=== PATIENT | female | born 1975 | race Caucasian/White ===

== ENCOUNTER 2020-03-18 15:02 | Emergency (ER) | payer OTHER ==
[2020-03-18] MEDS ORDERED: KETOROLAC TROMETHAMINE INJ 30 MG/ML VIAL IM ONE (15:38)
--- NOTE | 2020-03-18 16:36 | RAD ---
EXAM DESCRIPTION: Chest,1 View CLINICAL HISTORY:45 years Female, right lower chest upper abd pain Comparison: None FINDINGS: No focal lung consolidation. No pleural effusion. No pneumothorax. Cardiac and mediastinal silhouette is unremarkable. No acute osseous abnormality. Soft tissues are unremarkable. IMPRESSION: No acute findings. No focal lung consolidation. Electronically signed by: Conner Escobar MD 03/18/2020 4:34 PM CDT
[2020-03-18] MEDS ORDERED: TAMSULOSIN 0.4 MG CAP PO ONE (16:58)
[2020-03-18] MEDS ORDERED: HYDROcodone 7.5MG/APAP 325MG 1 EA TAB PO ONE (16:58)
[2020-03-18] MEDS ORDERED: CIPROFLOXACIN 500 MG TAB PO ONE (16:59)
--- NOTE | 2020-03-18 17:41 | CT ---
EXAM DESCRIPTION: Abdoment/Pelvis w/o Contrast CLINICAL HISTORY: rt abd flank pain, mild hematuria COMPARISON: None Available TECHNIQUE: Contiguous axial images of the abdomen and pelvis were obtained followed by reconstruction images. This exam was performed according to our departmental dose-optimization program, which includes automated exposure control, adjustment of the mA and/or kV according to patient size and/or use of iterative reconstruction technique. FINDINGS: Patient is status post cholecystectomy. There is right-sided hydronephrosis due to a 4 mm stone within the proximal ureter. There is an additional nonobstructive 1.3 cm stone within the right kidney. There are nonobstructive stones within the left kidney. Calcifications within the pelvis compatible with phleboliths. Patient is status post cholecystectomy. The liver, spleen, pancreas and kidneys are within normal limits. Adrenal glands are within normal limits. Aorta is of normal caliber and tapering. There is no free fluid in the abdomen or pelvis. There is no bowel obstruction. There is no stranding of the mesenteric fat to suggest an inflammatory response. The appendix is within normal limits. There is no pericecal inflammation. IMPRESSION: Right-sided hydronephrosis due to a 4 mm stone within the proximal ureter. Bilateral nephrolithiasis. Electronically signed by: Niraj Solomon MD 03/18/2020 5:40 PM CDT
--- NOTE | 2020-03-18 17:50 | ED.PDOC ---
History of Present Illness - General Chief Complaint: General Stated Complaint: RUQ abd pain radiating to the back, N/V Time Seen by Provider: 03/18/20 15:38 Source: patient Exam Limitations: no limitations - History of Present Illness Initial Comments: The patient is a 45-year-old female presented emergency room secondary to right flank and abdominal pain cramping in nature that started about 18 hours ago. No dysuria. No urinary symptoms. No history of any significant kidney stones. She has been doing some painting recently that may have caused some muscle strain. No bruising. No palpable deformity. No respiratory symptoms. Timing/Duration: 24 hours Severity: moderate Improving Factors: nothing Worsening Factors: movement Associated Symptoms: denies symptoms Allergies/Adverse Reactions: Allergies Azithromycin [From Zithromax] Allergy (Verified 03/18/20 15:44) Home Medications: Ambulatory Orders Ciprofloxacin [Cipro] 500 mg PO BID #10 tab 03/18/20 Tamsulosin HCl [Flomax] 0.4 mg PO DAILY #7 cap 03/18/20 Review of Systems - Review of Systems Constitutional: States: no symptoms reported EENTM: States: no symptoms reported Respiratory: States: no symptoms reported Cardiology: States: no symptoms reported Gastrointestinal/Abdominal: States: abdominal pain Genitourinary: States: no symptoms reported Musculoskeletal: States: back pain Skin: States: no symptoms reported Neurological: States: no symptoms reported Endocrine: States: no symptoms reported All other Systems: No Change from Baseline Past Medical History (General) - Patient Medical History Hx Stroke: No Hx of COPD: No Hx Cardiac Disorders: No Hx Congestive Heart Failure: No Hx Hypertension: Yes Hx Diabetes: Yes Hx Gastroesophageal Reflux: Yes Hx Cancer: No Surgical History: cholecystectomy, tonsillectomy, Hysterectomy - Vaccination History Hx Influenza Vaccination: No Hx Pneumococcal Vaccination: No - Social History Hx Tobacco Use: No Hx Alcohol Use: No Hx Substance Use: No Hx Substance Use Treatment: No Hx Depression: No - Female History Patient is a Female of Child Bearing Age (10 -59 yrs old): Yes Patient : No - Hyst Family Medical History - Family History Father Hx Family Stroke: Yes Hx Family Diabetes: Yes Physical Exam - Physical Exam General Appearance: Alert, No apparent distress Eye Exam: bilateral normal Ears, Nose, Throat: hearing grossly normal, normal pharynx Neck: full range of motion, supple Respiratory: lungs clear, normal breath sounds, no respiratory distress, no accessory muscle use Cardiovascular/Chest: normal peripheral pulses, regular rate, rhythm, no edema Peripheral Pulses: radial,right: 2+, radial,left: 2+ Gastrointestinal/Abdominal: non tender, soft Rectal Exam: deferred Back Exam: CVA tenderness (R) Extremity: non-tender, normal inspection, no pedal edema, normal capillary refill 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 She appears to have a 4 mm stone in the right proximal ureter. No evidence of infection or kidney failure. The patient needs to drink a fairly large amount of fluids for the next week. She does need to do remain mobile. Additionally she can take Motrin or Aleve to hel p reduce inflammation and help with passage. She will also be written for Flomax and ciprofloxacin for the next week. If she is still having symptoms after 5 to 7 days then she needs to get an appointment with a urologist for consultation for possible stone removal. ER warnings given. gudelia roblero [id number] - Results/Orders Results/Orders: CT scan of abdomen pelvis shows a 4 mm obstructing stone in the proximal ureter. There is also a 1.3 cm stone in the kidney itself. Chest x-ray shows no acute pathology. COVID test is negative. Laboratory Tests 03/18/20 03/18/20 03/18/20 15:53 15:53 15:53 WBC 8.8 RBC 5.03 Hgb 13.1 Hct 39.8 MCV 79.2 L MCH 26.0 L MCHC 32.9 L RDW 14.1 Plt Count 212 MPV 8.7 Absolute Neuts (auto) 6.30 Absolute Lymphs (auto) 1.70 Absolute Monos (auto) 0.60 Absolute Eos (auto) 0.20 Absolute Basos (auto) 0.10 Neutrophils % 71.2 Lymphocytes % 19.1 L Monocytes % 6.8 Eosinophils % 2.2 Basophils % 0.7 Sodium 137 Potassium 4.3 Chloride 99 L Carbon Dioxide 27 Anion Gap 15.3 BUN 20 H Creatinine 0.55 L BUN/Creatinine Ratio 36.4 H Random Glucose 180 H Serum Osmolality 281.0 Calcium 8.9 Total Bilirubin 0.4 AST 17 ALT 20 Alkaline Phosphatase 48 Serum Total Protein 7.0 Albumin 3.7 Globulin 3.3 Albumin/Globulin Ratio 1.1 Amylase 26 L Lipase 23 Serum HCG, Qual Negative Urine Color Urine Appearance Urine pH Ur Specific [place] Urine Protein Urine Glucose (UA) Urine Ketones Urine Blood Urine Nitrite Urine Bilirubin Urine Urobilinogen Ur Leukocyte Esterase Urine RBC Urine WBC Ur Epithelial Cells Urine Bacteria 03/18/20 16:22 WBC RBC Hgb Hct MCV MCH MCHC RDW Plt Count MPV Absolute Neuts (auto) Absolute Lymphs (auto) Absolute Monos (auto) Absolute Eos (auto) Absolute Basos (auto) Neutrophils % Lymphocytes % Monocytes % Eosinophils % Basophils % Sodium Potassium Chloride Carbon Dioxide Anion Gap BUN Creatinine BUN/Creatinine Ratio Random Glucose Serum Osmolality Calcium Total Bilirubin AST ALT Alkaline Phosphatase Serum Total Protein Albumin Globulin Albumin/Globulin Ratio Amylase Lipase Serum HCG, Qual Urine Color Yellow Urine Appearance Sl cloudy Urine pH 6.0 Ur Specific [place] 1.025 Urine Protein Trace Urine Glucose (UA) Negative Urine Ketones Negative Urine Blood Large H Urine Nitrite Negative Urine Bilirubin Negative Urine Urobilinogen 0.2 Ur Leukocyte Esterase Negative Urine RBC 20-30 H Urine WBC 0 Ur Epithelial Cells 0-1 Urine Bacteria 0 Departure - Departure Clinical Impression: Calcium ureterolithiasis Disposition: Discharge to Home or Self Care Condition: Fair Departure Forms: ED Discharge - Pt. Copy, Patient Portal Self Enrollment Instructions: Kidney Stones (DC) Diet: regular diet Activity: increase activity as tolerated Referrals: RM NOGUERA [Primary Care Provider] - 1-2 Weeks Prescriptions: Ciprofloxacin [Cipro] 500 mg PO BID #10 tab Tamsulosin HCl [Flomax] 0.4 mg PO DAILY #7 cap Home Medications: Ambulatory Orders Ciprofloxacin [Cipro] 500 mg PO BID #10 tab 03/18/20 Tamsulosin HCl [Flomax] 0.4 mg PO DAILY #7 cap 03/18/20 Additional Instructions: The patient is a 45-year-old female presented emergency room secondary to right-sided flank and abdominal pain. She appears to have a 4 mm stone in the right proximal ureter. No evidence of infection or kidney failure. The patient needs to drink a fairly large amount of fluids for the next week. She does need to do remain mobile. Additionally she can take Motrin or Aleve to help reduce inflammation and help with passage. She will also be written for Flomax and ciprofloxacin for the next week. If she is still having symptoms after 5 to 7 days then she needs to get an appointment with a urologist for consultation for possible stone removal. ER warnings given.
[2020-03-18 18:01] VITALS: BP 130/80; TEMP 97.6; O2SAT 97
== END 2020-03-18 17:59 | disposition home or self-care (01) ==
LOC: ER 15:02
DX: N20.2 Calculus of kidney with calculus of ureter (principal); I10 Essential (primary) hypertension; E11.9 Type 2 diabetes mellitus without complications; K21.9 Gastro-esophageal reflux disease without esophagitis; Z20.828 Contact with and (suspected) exposure to other viral communicable diseases
CPT/HCPCS: 36415; 71045; 74176; 80053; 81001; 82150; 83690; 84703; 85025; 87635; J1885

== ENCOUNTER 2020-04-07 18:40 | Emergency (ER) | payer OTHER ==
[2020-04-07] MEDS ORDERED: MORPHINE SULFATE INJ 10 MG/ML VIAL IV ONE (19:11)
[2020-04-07] MEDS ORDERED: SODIUM CHLORIDE 0.9% 1000ML 1,000 ML IVS ONE (19:11)
[2020-04-07] MEDS ORDERED: ONDANSETRON INJ 4 MG/2 ML VIAL IV ONE (19:11)
[2020-04-07] MEDS ORDERED: ACETAMINOPHEN IV 1000MG 1,000 MG in PREMIX BOTTLE 1 BOTTLE IVPB ONE (19:22)
--- NOTE | 2020-04-07 19:51 | CT ---
EXAM: Abdoment/Pelvis w/o Contrast CLINICAL INDICATION: Abdominal pain. COMPARISON: 03/18/2020 TECHNIQUE: The CT scan was done using contiguous axial 2.5 mm noncontrast sections through the abdomen and pelvis. This exam was performed according to our departmental dose-optimization program, which includes automated exposure control, adjustment of the mA and/or kV according to patient size and/or use of iterative reconstruction technique. FINDINGS: The visualized portions of the lung bases are clear. The liver, spleen, adrenal glands, pancreas, and left kidney are unremarkable. There is an obstructing stone lodged at the right ureteropelvic junction measuring 1.4 x 0.9 cm, with moderate right hydronephrosis. Another, smaller stone is seen in the right proximal ureter measuring 4.6 x 2.8 mm. The aorta is normal in caliber. There are no dilated loops of small bowel. The appendix is normal. The uterus is surgically absent. There is no free air, free fluid, or abscess. IMPRESSION: 1. 2 stones in the right proximal ureter with moderate right-sided hydronephrosis. 2. 2 mm nonobstructing stone in the right lower renal pole. Electronically signed by: Jonathan Bennett MD 04/07/2020 7:50 PM LINER HELPER
--- NOTE | 2020-04-07 19:56 | ED.PDOC ---
History of Present Illness - General Chief Complaint: Problem Time Seen by Provider: 04/07/20 18:41 Source: patient, RN notes reviewed, Vital Signs reviewed, old records - History of Present Illness Initial Comments: 45 yo F with a PMH of HTN and stones comes in with right flank pain. Was here one week ago and dx with 3 mm stone. States she also has a large stone, but was xtill in renal pelvis. woke up this morning with right flank pain. Has not seen urology. Allergies/Adverse Reactions: Allergies Azithromycin [From Zithromax] Allergy (Verified 03/18/20 15:44) Home Medications: Ambulatory Orders Ondansetron HCl [Zofran] 4 mg PO TID PRN #15 tab 04/07/20 Sulfamethoxazole-Trimethoprim [Bactrim Ds 800-160 mg] 1 tab PO BID #20 tab 04/07/20 Tamsulosin HCl [Flomax] 0.4 mg PO DAILY #30 cap 04/07/20 Review of Systems - Review of Systems Constitutional: Denies: chills, fever EENTM: Denies: blurred vision, ear discharge, throat pain, mouth pain Respiratory: Denies: cough, short of breath, wheezing Cardiology: Denies: chest pain, palpitations Gastrointestinal/Abdominal: States: abdominal pain, nausea. Denies: diarrhea, vomiting Genitourinary: States: hematuria. Denies: dysuria, frequency Musculoskeletal: Denies: joint pain, joint swelling, muscle pain Skin: Denies: rash Neurological: Denies: headache, numbness, paresthesia, tingling, tremors, weakness Endocrine: Denies: unexplained weight gain, unexplained weight loss Hematologic/Lymphatic: Denies: easy bleeding, easy bruising Past Medical History (General) - Patient Medical History Hx Stroke: No Hx of COPD: No Hx Cardiac Disorders: No Hx Congestive Heart Failure: No Hx Hypertension: Yes Hx Diabetes: Yes Hx Gastroesophageal Reflux: Yes Hx Cancer: No - Vaccination History Hx Influenza Vaccination: No Hx Pneumococcal Vaccination: No - Social History Hx Tobacco Use: No Hx Alcohol Use: No Hx Substance Use: No Hx Substance Use Treatment: No Hx Depression: No - Female History Patient : No - Hyst Family Medical History - Family History Father Hx Family Stroke: Yes Hx Family Diabetes: Yes Physical Exam - Physical Exam General Appearance: Alert, Comfortable, No apparent distress, Well Developed, Well Groomed, Well Hydrated, Well Nourished Eye Exam: bilateral normal Ears, Nose, Throat: hearing grossly normal, normal ENT inspection, normal pharynx Neck: non-tender, full range of motion, supple, normal inspection Respiratory: chest non-tender, lungs clear, normal breath sounds, no respiratory distress, no accessory muscle use Cardiovascular/Chest: normal peripheral pulses, regular rate, rhythm, no edema, no gallop, no JVD, no murmur Peripheral Pulses: radial,right: 2+, radial,left: 2+ Gastrointestinal/Abdominal: normal bowel sounds, non tender, soft, no organomegaly, no pulsatile mass Rectal Exam: deferred Back Exam: normal inspection, no vertebral tenderness, CVA tenderness (R) Extremity: normal range of motion, non-tender, normal inspection, no pedal edema, no calf tenderness, normal capillary refill 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 due to taking 9 motrin today will avoid toradol. Will give IV tylenol. Refuses norco as well. The data reviewed when caring for this patient included: nurse notes, prior records, etc. The history and assessments from nurses notes were reviewed and considered, and the patient's home medication list was also reviewed and considered. My assessment and the results of testing completed here in the ED were discussed with the patient/family. All questions were answered, and they express understanding of my assessment and the plan. They have been instructed to return if their symptoms worsen, and have been asked to follow up with their primary care physician to recheck today's presenting complaint. Strict return precautions given. I have reviewed medication, benefits, alternatives and side effects. Patient decided to proceed with medication.VSS, pain well controlled, patient po tolerant. discharged home in stable condition. Karley Hahn DO #[id number] 04/07/20 20:39 - EKG/XRAY/CT CT: 14 x 9mm stone at ureteropelvic junction. - Consult/PCP Time Called: 19:20 Consult/PCP: Beatrice Consult Reason/Comments: NO evidence of infection at this time will see patient in office on thursday Departure - Departure Clinical Impression: Calcium ureterolithiasis Time of Disposition: 20:17 Disposition: Discharge to Home or Self Care Departure Forms: ED Discharge - Pt. Copy, Patient Portal Self Enrollment Instructions: Laser Lithotripsy for Kidney Stones (DC), How to Strain Your Urine Referrals: RM NOGUERA [Primary Care Provider] - 1-2 Weeks BELINDA SAMUELS [Referring] - 1-2 Days Prescriptions: Sulfamethoxazole-Trimethoprim [Bactrim Ds 800-160 mg] 1 tab PO BID #20 tab Tamsulosin HCl [Flomax] 0.4 mg PO DAILY #30 cap Ondansetron HCl [Zofran] 4 mg PO TID PRN #15 tab PRN Reason: Vomiting Home Medications: Ambulatory Orders Ondansetron HCl [Zofran] 4 mg PO TID PRN #15 tab 04/07/20 Sulfamethoxazole-Trimethoprim [Bactrim Ds 800-160 mg] 1 tab PO BID #20 tab 04/07/20 Tamsulosin HCl [Flomax] 0.4 mg PO DAILY #30 cap 04/07/20 Additional Instructions: Calcium oxalate kidney stones are the leading type of kidney stones. Oxalate is naturally found in many foods, including fruits and vegetables, nuts and seeds, grains, legumes, and even chocolate and tea. Some examples of foods that contain high levels of oxalate include: peanuts, rhubarb, spinach, beets, chocolate and sweet potatoes. Avoid these foods. return right away if symptoms worsen or get a fever.
[2020-04-07 20:08] VITALS: O2SAT 96
[2020-04-07] MEDS ORDERED: traMADol HCL 50 MG (ER DISP) # 6 TABS PO ONE (20:17)
[2020-04-07] MEDS ORDERED: traMADol HCL 50 MG TAB PO ONE (20:19)
[2020-04-07 21:09] VITALS: BP 126/76; TEMP 97.9
== END 2020-04-07 20:50 | disposition home or self-care (01) ==
LOC: ER 18:40
DX: N13.2 Hydronephrosis with renal and ureteral calculous obstruction (principal); K21.9 Gastro-esophageal reflux disease without esophagitis; I10 Essential (primary) hypertension; E11.9 Type 2 diabetes mellitus without complications; Z88.1 Allergy status to other antibiotic agents
CPT/HCPCS: 74176; 80053; 81001; 83690; 85025; J2405; J7030